=== PATIENT | male | born 1965 | race Two or more races ===

== ENCOUNTER 2017-04-16 20:57 | Emergency (ER) | payer SELFPAY ==
[~2017-04-16] VITALS: Ht 170.2 cm; Wt 59.0 kg
[2017-04-17] MEDS ORDERED: IBUPROFEN 600MG TABLET PO ONE (03:00)
[2017-04-17] MEDS ORDERED: LORAZEPAM 2MG/ML CPJ IM ONE (04:15)
[2017-04-17] MEDS ORDERED: HALOPERIDOL LACTATE 5MG/ML VIAL IM ONE (04:15)
[2017-04-17] MEDS ORDERED: DIPHENHYDRAMINE 50MG/ML VIAL IM ONE (04:15)
[2017-04-17 05:01] LABS: BASOPHILS % 1.4 % (0.0-2.0); EOSINOPHILS % 6.4 % (0.0-5.0); HEMATOCRIT. 39.6 % (42.0-52.0); HEMOGLOBIN. 13.1 g/dL (14.0-18.0); LYMPHOCYTES % 36.1 % (20.0-50.0); MEAN CORPUSCULAR HEMOGLOBIN 30.5 pg (28.0-32.0); NEUTROPHILS % 43.1 % (40.0-76.0); PLATELET 414 x1000/uL (130-400); RED BLOOD CELL COUNT 4.31 mill/uL (4.7-6.1); RED CELL DISTRIBUTION WIDTH 13.9 % (11.6-14.6)
[2017-04-17 05:13] LABS: CLARITY URINE CLOUDY (CLEAR); COLOR URINE DARK YELLOW (YELLOW); KETONES URINE 1+ (NEGATIVE); LEUKOCYTE ESTERASE URINE TRACE (NEGATIVE); NITRITE URINE NEGATIVE (NEGATIVE); OCCULT BLOOD URINE NEGATIVE (NEGATIVE); PROTEIN URINE NEGATIVE (NEGATIVE)
[2017-04-17 05:13] LABS: CHLORIDE 105 mEq/L (98-107); ETHANOL BLOOD < 10 mg/dL
[2017-04-17 05:25] LABS: *AMPHETAMINES SCREEN URINE NEGATIVE (NEGATIVE); *BARBITURATES SCREEN URINE NEGATIVE (NEGATIVE); *BENZODIAZEPINES SCREEN URINE NEGATIVE (NEGATIVE); *COCAINE SCREEN URINE NEGATIVE (NEGATIVE); CANNABINOID URINE SCREEN NEGATIVE (NEGATIVE); METHADONE URINE SCREEN NEGATIVE (NEGATIVE); OPIATES URINE SCREEN NEGATIVE (NEGATIVE); PHENCYCLIDINE URINE SCREEN NEGATIVE (NEGATIVE)
[2017-04-17 07:40] VITALS: BP 128/80
== END 2017-04-17 15:25 | disposition home or self-care (01) ==
LOC: ER 20:59
DX: S80.11XA Contusion of right lower leg, initial encounter (principal); R45.851 Suicidal ideations; F17.210 Nicotine dependence, cigarettes, uncomplicated; Y08.89XA Assault by other specified means, initial encounter; Y93.89 Activity, other specified; Y92.89 Other specified places as the place of occurrence of the external cause; Y99.8 Other external cause status; Z59.0 Homelessness
CPT/HCPCS: 36415; 73620; 80053; 80305; 80307; 80329; 81001; 85025; 96372; 99285; G0482; J1200; J1630; J2060; Z7610